=== PATIENT | female | born 1975 | race Hispanic/Latino ===

== ENCOUNTER 2021-03-27 08:37 | Emergency (ER) | payer OTHER ==
[~2021-03-27] VITALS: Ht 154.9 cm; Wt 93.7 kg
[2021-03-27] MEDS ORDERED: ONDANSETRON HCL INJ 2MG/ML 2ML 2 MG/ML VIAL IV STA (09:18)
[2021-03-27] MEDS ORDERED: KETOROLAC TROMETHAMINE 30 MG/ML VIAL IV STA (09:18)
[2021-03-27] MEDS ORDERED: SODIUM CHLORIDE 0.9% 1000ML 1,000 ML IV STA ×2 (09:18→09:20)
[2021-03-27] MEDS ORDERED: SODIUM CHLORIDE 0.9% 1000ML 1,000 ML ONE (09:20)
[2021-03-27] MEDS ORDERED: KETOROLAC TROMETHAMINE 30 MG/ML VIAL ONE (09:20)
[2021-03-27] MEDS ORDERED: ONDANSETRON HCL INJ 2MG/ML 2ML 2 MG/ML VIAL ONE (09:20)
[2021-03-27] MEDS ORDERED: KETOROLAC TROMETHAMINE 30 MG/ML VIAL IV ONE (09:30)
[2021-03-27] MEDS ORDERED: PROMETHAZINE 12.5MG/ NACL 0.9% 12.5 MG/50 ML BAG IV ONE (09:30)
[2021-03-27] MEDS ORDERED: HYDROCODONE/APAP 5MG-325MG TAB ONE (09:51)
[2021-03-27] MEDS ORDERED: HYDROCODONE/APAP 5MG-325MG TAB PO PRN (10:00)
[2021-03-27] MEDS ORDERED: CEFDINIR300 MG PO (11:03)
[2021-03-27] MEDS ORDERED: ONDANSETRON ODT4 MG PO (11:03)
[2021-03-27] MEDS ORDERED: HYDROCODON-ACE1 EA12 PO (11:03)
[2021-03-27 11:28] VITALS: BP 151/77
== END 2021-03-27 11:26 | disposition home or self-care (01) ==
LOC: FSED 09:22
DX: R10.31 Right lower quadrant pain (principal); R11.2 Nausea with vomiting, unspecified; N13.2 Hydronephrosis with renal and ureteral calculous obstruction; M54.5 Low back pain
CPT/HCPCS: 74176; 80048; 80076; 81003; 85025; 96374; 96375; 99284; J1885; J2405; J2550; J7030

== ENCOUNTER 2021-04-01 03:45 | Inpatient (IN) | payer SELFPAY ==
[~2021-04-01] VITALS: Ht 154.9 cm; Wt 92.1 kg
[~2021-04-01 03:45] MED LIST: CEFDINIR300 MG PO; HYDROCODON-ACE1 EA12 PO; ONDANSETRON ODT4 MG PO
[2021-04-01 04:24] LABS: BASOPHILS # (AUTO) 0.1 (0.0-0.1); BASOPHILS % 0.9 % (0.0-1.0); EOSINOPHILS # (AUTO) 0.1 (0.0-0.4); EOSINOPHILS % 0.7 % (0.0-6.0); HEMATOCRIT 36.8 % (34.2-44.1); LYMPHOCYTES # (AUTO) 1.4 (1.0-3.2); LYMPHOCYTES % 20.5 % (18.0-39.1); MEAN CORPUSCULAR HEMOGLOBIN 28.2 pg (28-32); MEAN CORPUSCULAR HGB CONC 32.6 g/dL (31-35); MEAN CORPUSCULAR VOLUME 86.4 fL (81-99); MONOCYTES # (AUTO) 0.6 (0.2-0.8); MONOCYTES % 9.6 % (4.4-11.3); NEUTROPHILS # (AUTO) 4.5 (2.1-6.9); NEUTROPHILS % 68.2 % (38.7-80.0); PLATELET COUNT 288 x10e3/uL (140-360); RED BLOOD COUNT 4.26 x10e6/uL (3.6-5.1); RED CELL DISTRIBUTION WIDTH 12.9 % (11.7-14.4)
[2021-04-01 04:44] LABS: ALANINE AMINOTRANSFERASE 25 IU/L (0-55); ALBUMIN 3.2 g/dL (3.5-5.0); ALBUMIN/GLOBULIN RATIO 0.7 (0.8-2.0); ALKALINE PHOSPHATASE 104 IU/L (40-150); ANION GAP 17.2 mmol/L (8-16); BLOOD UREA NITROGEN 12 mg/dL (7-26); BUN/CREATININE RATIO 13 (6-25); CARBON DIOXIDE 26 mmol/L (22-29); CHLORIDE 101 mmol/L (98-107); EST GLOMERULAR FILTRATION RATE > 60 ML/MIN (60-); GLUCOSE 140 mg/dL (74-118); POTASSIUM 4.2 mmol/L (3.5-5.1); SODIUM 140 mmol/L (136-145)
[2021-04-01] MEDS ORDERED: KETOROLAC TROMETHAMINE 30 MG/ML VIAL IV STA (05:43)
[2021-04-01] MEDS ORDERED: SODIUM CHLORIDE 0.9% 1000ML 1,000 ML IV SCH ×2 (05:45→09:30)
[2021-04-01] MEDS ORDERED: CEFTRIAXONE SOD 1 GM/50 ML BAG IV ONE (06:00)
[2021-04-01] MEDS ORDERED: CEFTRIAXONE SOD 1 GM in SODIUM CHLORIDE 0.9% 50ML 50 ML IV ONE (06:15)
[2021-04-01] MEDS ORDERED: MORPHINE SULFATE INJ 4 MG/ML INJ 1ML IV PRN (06:15)
[2021-04-01] MEDS ORDERED: ONDANSETRON HCL INJ 2MG/ML 2ML 2 MG/ML VIAL IV PRN (06:15)
[2021-04-01 06:38] LABS: CLARITY,URINE CLEAR (CLEAR); COLOR,URINE YELLOW (YELLOW); LEUKOCYTE ESTERASE ,URINE SMALL (NEGATIVE); NITRITE,URINE NEGATIVE (NEGATIVE); PROTEIN,URINE DIPSTICK NEGATIVE (NEGATIVE)
[2021-04-01 06:39] LABS: KETONES,URINE 1+ (NEGATIVE); URINE UROBILINOGEN 0.2 mg/dL (0.2 - 1)
[2021-04-01 06:46] LABS: BACTERIA,URINE FEW /HPF; EPITHELIAL CELLS,URINE MODERATE /LPF; RBC,URINE 21-50 /HPF (0-5); WBC,URINE (MAN) 21-50 /HPF (0-5)
[2021-04-01] MEDS ORDERED: BENZONATATE 100 MG CAP PO PRN (08:45)
[2021-04-01] MEDS ORDERED: DOCUSATE SODIUM 100 MG CAP PO PRN (08:45)
[2021-04-01] MEDS ORDERED: LIDOCAINE 4% PATCH TP PRN (08:45)
[2021-04-01] MEDS ORDERED: SIMETHICONE 80 MG CHEW PO PRN (08:45)
[2021-04-01] MEDS ORDERED: HYDRALAZINE HCL 20 MG/ML VIAL IV PRN (08:45)
[2021-04-01] MEDS ORDERED: DEXTROSE 50% SYRINGE 50 ML IV PRN (08:45)
[2021-04-01] MEDS ORDERED: POLYETHYLENE GLYCOL 3350 17 GM PACK PO PRN (08:45)
[2021-04-01] MEDS ORDERED: POTASSIUM CHLORIDE 20 MEQ TAB CR PO PRN (08:45)
[2021-04-01] MEDS ORDERED: DIPHENHYDRAMINE HCL 25 MG CAP PO PRN (08:45)
[2021-04-01] MEDS ORDERED: MELATONIN 5 MG TABLET PO PRN (08:45)
[2021-04-01] MEDS: KETOROLAC TROMETHAMINE 30 MG/ML VIAL IV SCH ×2 (09:55→17:49)
[2021-04-01] MEDS: ONDANSETRON HCL INJ 2MG/ML 2ML 2 MG/ML VIAL IV PRN (09:55)
[2021-04-01] MEDS: MORPHINE SULFATE INJ 2 MG/ML SYR IV PRN (09:55)
[2021-04-01] MEDS: SODIUM CHLORIDE 0.9% 1000ML 1,000 ML IV SCH ×2 (14:08→17:48)
[2021-04-01 15:29] VITALS: BP 143/68
[2021-04-01 17:00] VITALS: BP 143/68
[2021-04-01] MEDS: ACETAMINOPHEN 325 MG TAB PO PRN ×2 (17:41→23:41)
[2021-04-01 20:00] VITALS: BP 115/98
[2021-04-01 21:00] VITALS: BP 115/98
[2021-04-02] VITALS (9 sets, daily range): BP systolic 103–130; BP diastolic 56–75
[2021-04-02] MEDS: SODIUM CHLORIDE 0.9% 1000ML 1,000 ML IV SCH ×4 (02:08→22:15)
[2021-04-02] MEDS ORDERED: ACETAMINOPHEN 325 MG TAB PO ONE (04:15)
[2021-04-02] MEDS ORDERED: IBUPROFEN 600 MG TAB PO PRN (04:15)
[2021-04-02] MEDS ORDERED: SODIUM CHLORIDE 0.9% 50ML 50 ML ONE (05:46)
[2021-04-02] MEDS ORDERED: PIPER-TAZ 3.375 GM / NS 50ML IV SCH (06:00)
[2021-04-02] MEDS ORDERED: PIPERACILLIN/TAZOBAC 3.375 GM in SODIUM CHLORIDE 0.9% 50ML 50 ML IV SCH (06:00)
[2021-04-02 06:03] LABS: BASOPHILS % 0.4 % (0.0-1.0); HEMATOCRIT 32.8 % (34.2-44.1); HEMOGLOBIN 10.9 g/dL (12.0-16.0); LYMPHOCYTES # (AUTO) 0.2 (1.0-3.2); LYMPHOCYTES % 2.6 % (18.0-39.1); MEAN CORPUSCULAR HEMOGLOBIN 28.5 pg (28-32); MEAN CORPUSCULAR HGB CONC 33.2 g/dL (31-35); MEAN CORPUSCULAR VOLUME 85.6 fL (81-99); MONOCYTES # (AUTO) 0.3 (0.2-0.8); MONOCYTES % 3.4 % (4.4-11.3); NEUTROPHILS # (AUTO) 7.4 (2.1-6.9); NEUTROPHILS % 93.2 % (38.7-80.0); PLATELET COUNT 205 x10e3/uL (140-360); RED BLOOD COUNT 3.83 x10e6/uL (3.6-5.1); RED CELL DISTRIBUTION WIDTH 13.1 % (11.7-14.4)
[2021-04-02] MEDS: KETOROLAC TROMETHAMINE 30 MG/ML VIAL IV SCH ×4 (06:08→18:04)
[2021-04-02 06:24] LABS: ALBUMIN 2.6 g/dL (3.5-5.0); ALBUMIN/GLOBULIN RATIO 0.7 (0.8-2.0); ANION GAP 14.2 mmol/L (8-16); CALCIUM 7.7 mg/dL (8.4-10.2); CREATININE, SERUM 1.19 mg/dL (0.57-1.11); MAGNESIUM 1.6 MG/DL (1.3-2.1); POTASSIUM 4.2 mmol/L (3.5-5.1)
[2021-04-02] MEDS ORDERED: CEFTRIAXONE SOD 1 GM in SODIUM CHLORIDE 0.9% 50ML 50 ML IV SCH (06:30)
[2021-04-02] MEDS ORDERED: MEROPENEM 500MG 500 MG in SODIUM CHLORIDE 0.9% 50ML 50 ML IV SCH (06:45)
[2021-04-02] MEDS ORDERED: CEFTRIAXONE SOD 1 GM/50 ML BAG IV SCH (07:00)
[2021-04-02 08:00] LABS: BAND NEUTROPHILS % (MANUAL) 2 %; LYMPHOCYTES % (MANUAL) 12 % (19-48); METAMYELOCYTES % (MANUAL) 2 % (0-0); MONOCYTES % (MANUAL) 6 % (3.4-9.0); NEUTROPHILS % (MANUAL) 75 % (40-74); PLATELET ESTIMATE ADEQUATE; PLATELET MORPHOLOGY COMMENT NORMAL
[2021-04-02 08:47] LABS: INR 1.05; PROTHROMBIN TIME 14.3 seconds (11.9-14.5)
[2021-04-02 08:48] LABS: PARTIAL THROMBOPLASTIN TIME 33.7 seconds (23.8-35.5)
[2021-04-02] MEDS: ACETAMINOPHEN 325 MG TAB PO PRN ×2 (08:54→16:34)
[2021-04-02] MEDS: PANTOPRAZOLE SOD 40 MG TABEC PO SCH (08:59)
[2021-04-02] MEDS: ONDANSETRON HCL INJ 2MG/ML 2ML 2 MG/ML VIAL IV PRN (09:04)
[2021-04-02] MEDS ORDERED: IOPAMIDOL 300MG/ML 100 ML INFUS..BTL IV ONE (09:26)
[2021-04-02] MEDS ORDERED: LIDOCAINE HCL 1% LOCAL INJ 20 ML VIAL ONE (09:26)
[2021-04-02] MEDS ORDERED: SODIUM CHLORIDE 0.9% 250ML 0 ML ONE (09:27)
[2021-04-02] MEDS: MORPHINE SULFATE INJ 2 MG/ML SYR IV PRN (13:11)
[2021-04-02] MEDS: MEROPENEM 500MG/ NS 50ML 50 ML IV SCH ×2 (14:04→20:15)
[2021-04-02] MEDS ORDERED: FENTANYL CITRATE/PF 100MCG/2 ML INJ ONE (14:46)
[2021-04-02] MEDS ORDERED: MIDAZOLAM HCL 2 MG/2 ML VIAL ONE (14:46)
[2021-04-02] MEDS ORDERED: FLUMAZENIL 0.5MG/ 5ML VIAL ONE (15:01)
[2021-04-02] MEDS ORDERED: NALOXONE HCL 2MG/2 ML SYRINGE ONE (15:02)
[2021-04-02] MEDS ORDERED: SODIUM CHLORIDE 0.9% 500ML 500 ML ONE (15:02)
[2021-04-02] MEDS ORDERED: SODIUM CHLORIDE 0.9% 250ML 250 ML ONE (15:04)
[2021-04-02] MEDS ORDERED: MEROPENEM 500MG/ NS 50ML 50 ML IV SCH (18:00)
[2021-04-03] VITALS (7 sets, daily range): BP systolic 102–138; BP diastolic 60–72
[2021-04-03] MEDS: ACETAMINOPHEN 325 MG TAB PO PRN ×2 (00:47→17:10)
[2021-04-03] MEDS: MEROPENEM 500MG/ NS 50ML 50 ML IV SCH ×4 (02:07→20:21)
[2021-04-03 05:01] LABS: BASOPHILS % 0.7 % (0.0-1.0); HEMATOCRIT 33.6 % (34.2-44.1); HEMOGLOBIN 10.7 g/dL (12.0-16.0); LYMPHOCYTES # (AUTO) 0.5 (1.0-3.2); LYMPHOCYTES % 9.2 % (18.0-39.1); MEAN CORPUSCULAR HEMOGLOBIN 27.8 pg (28-32); MEAN CORPUSCULAR HGB CONC 31.8 g/dL (31-35); MEAN CORPUSCULAR VOLUME 87.3 fL (81-99); MONOCYTES # (AUTO) 0.2 (0.2-0.8); MONOCYTES % 3.9 % (4.4-11.3); NEUTROPHILS # (AUTO) 4.6 (2.1-6.9); NEUTROPHILS % 85.5 % (38.7-80.0); PLATELET COUNT 193 x10e3/uL (140-360); RED BLOOD COUNT 3.85 x10e6/uL (3.6-5.1)
[2021-04-03] MEDS: SODIUM CHLORIDE 0.9% 1000ML 1,000 ML IV SCH ×3 (05:07→18:07)
[2021-04-03 05:24] LABS: ANION GAP 14.8 mmol/L (8-16); BLOOD UREA NITROGEN 7 mg/dL (7-26); BUN/CREATININE RATIO 9 (6-25); CALCIUM 7.4 mg/dL (8.4-10.2); CARBON DIOXIDE 18 mmol/L (22-29); CHLORIDE 107 mmol/L (98-107); CREATININE, SERUM 0.76 mg/dL (0.57-1.11); EST GLOMERULAR FILTRATION RATE > 60 ML/MIN (60-); GLUCOSE 84 mg/dL (74-118); POTASSIUM 3.8 mmol/L (3.5-5.1); SODIUM 136 mmol/L (136-145)
[2021-04-03] MEDS: PANTOPRAZOLE SOD 40 MG TABEC PO SCH (09:21)
[2021-04-03] MEDS: MICAFUNGIN SODIUM 100 MG in MICAFUNGIN SODIUM 100 ML IV SCH (12:43)
[2021-04-04] VITALS (9 sets, daily range): BP systolic 129–156; BP diastolic 66–75
[2021-04-04] MEDS: MORPHINE SULFATE INJ 2 MG/ML SYR IV PRN (01:25)
[2021-04-04] MEDS: MEROPENEM 500MG/ NS 50ML 50 ML IV SCH ×4 (02:07→20:50)
[2021-04-04] MEDS: ONDANSETRON HCL INJ 2MG/ML 2ML 2 MG/ML VIAL IV PRN (04:52)
[2021-04-04] MEDS: SODIUM CHLORIDE 0.9% 1000ML 1,000 ML IV SCH ×2 (04:52)
[2021-04-04 05:21] LABS: BASOPHILS # (AUTO) 0.1 (0.0-0.1); BASOPHILS % 0.7 % (0.0-1.0); EOSINOPHILS % 0.5 % (0.0-6.0); HEMATOCRIT 38.2 % (34.2-44.1); HEMOGLOBIN 12.2 g/dL (12.0-16.0); LYMPHOCYTES % 13.1 % (18.0-39.1); MEAN CORPUSCULAR HEMOGLOBIN 27.9 pg (28-32); MEAN CORPUSCULAR HGB CONC 31.9 g/dL (31-35); MEAN CORPUSCULAR VOLUME 87.4 fL (81-99); MONOCYTES # (AUTO) 0.5 (0.2-0.8); MONOCYTES % 6.3 % (4.4-11.3); NEUTROPHILS % 78.7 % (38.7-80.0); PLATELET COUNT 165 x10e3/uL (140-360); RED BLOOD COUNT 4.37 x10e6/uL (3.6-5.1)
[2021-04-04 05:34] LABS: ANION GAP 17.7 mmol/L (8-16); BLOOD UREA NITROGEN 6 mg/dL (7-26); BUN/CREATININE RATIO 9 (6-25); CARBON DIOXIDE 23 mmol/L (22-29); CHLORIDE 101 mmol/L (98-107); CREATININE, SERUM 0.69 mg/dL (0.57-1.11); EST GLOMERULAR FILTRATION RATE > 60 ML/MIN (60-); GLUCOSE 124 mg/dL (74-118); POTASSIUM 3.7 mmol/L (3.5-5.1); SODIUM 138 mmol/L (136-145)
[2021-04-04] MEDS: PANTOPRAZOLE SOD 40 MG TABEC PO SCH (09:58)
[2021-04-04] MEDS: MICAFUNGIN SODIUM 100 MG in MICAFUNGIN SODIUM 100 ML IV SCH (13:43)
[2021-04-04] MEDS ORDERED: LOPERAMIDE HCL 2 MG CAP PO ONE (22:45)
[2021-04-05] VITALS (7 sets, daily range): BP systolic 123–151; BP diastolic 63–85
[2021-04-05] MEDS: MEROPENEM 500MG/ NS 50ML 50 ML IV SCH ×4 (02:17→20:15)
[2021-04-05] MEDS: PANTOPRAZOLE SOD 40 MG TABEC PO SCH (08:53)
[2021-04-05] MEDS: MICAFUNGIN SODIUM 100 MG in MICAFUNGIN SODIUM 100 ML IV SCH (12:00)
[2021-04-05] MEDS: ACETAMINOPHEN 325 MG TAB PO PRN (19:23)
[2021-04-06] VITALS (8 sets, daily range): BP systolic 109–150; BP diastolic 69–84
[2021-04-06] MEDS: MEROPENEM 500MG/ NS 50ML 50 ML IV SCH ×2 (02:25→08:59)
[2021-04-06 05:19] LABS: ANION GAP 15.4 mmol/L (8-16); BLOOD UREA NITROGEN 10 mg/dL (7-26); BUN/CREATININE RATIO 16 (6-25); CALCIUM 8.5 mg/dL (8.4-10.2); CARBON DIOXIDE 25 mmol/L (22-29); CHLORIDE 104 mmol/L (98-107); CREATININE, SERUM 0.64 mg/dL (0.57-1.11); EST GLOMERULAR FILTRATION RATE > 60 ML/MIN (60-); GLUCOSE 119 mg/dL (74-118); POTASSIUM 3.4 mmol/L (3.5-5.1); SODIUM 141 mmol/L (136-145)
[2021-04-06] MEDS: PANTOPRAZOLE SOD 40 MG TABEC PO SCH (08:58)
[2021-04-06] MEDS: MICAFUNGIN SODIUM 100 MG in MICAFUNGIN SODIUM 100 ML IV SCH (12:09)
[2021-04-07 05:36] VITALS: BP 108/66
[2021-04-07] MEDS: PANTOPRAZOLE SOD 40 MG TABEC PO SCH (08:22)
[2021-04-07 08:41] VITALS: BP 116/80
[2021-04-07 08:55] VITALS: BP 116/80
[2021-04-07] MEDS: MORPHINE SULFATE INJ 2 MG/ML SYR IV PRN (10:02)
[2021-04-07 11:46] VITALS: BP 136/78
[2021-04-07] MEDS ORDERED: MICAFUNGIN SODIUM 100 ML IV SCH (12:00)
[2021-04-07] MEDS ORDERED: DIFLUCAN200 MG PO (15:07)
[2021-04-07] MEDS ORDERED: ENOXAPARIN SOD INJ 40 MG/0.4 ML SYR SC SCH (17:00)
== END 2021-04-07 16:18 | disposition home or self-care (01) | DRG 690 ==
LOC: ER 05:09 → ERHOLD 06:04 → MED/SURG2 14:47
PROVIDERS: ADMIT Internal Medicine; ATTEND Internal Medicine
PROC: 0T9030Z Drainage of Right Kidney with Drainage Device, Percutaneous Approach (ICD-10-PCS; principal; 2021-04-02)
DX: N13.6 Pyonephrosis (principal); B37.49 Other urogenital candidiasis; Z87.442 Personal history of urinary calculi; Z20.822 Contact with and (suspected) exposure to COVID-19; E66.9 Obesity, unspecified; Z68.38 Body mass index [BMI] 38.0-38.9, adult; K29.70 Gastritis, unspecified, without bleeding; I10 Essential (primary) hypertension; E87.8 Other disorders of electrolyte and fluid balance, not elsewhere classified; N17.9 Acute kidney failure, unspecified
CPT/HCPCS: 36415; 50430; 74176; 74470; 76942; 80048; 80053; 81001; 82948; 83605; 83690; 83735; 84702; 85025; 85610; 85730; 87040; 87071; 87075; 87086; 87205; 87493; 99284; C1769; J0696; J1885; J2001; J2185; J2248; J2250; J2270; J2310; J2405; J2543; J3010; J7030; J7040; J7050; Q9967; U0002

== ENCOUNTER 2021-04-15 12:45 | Inpatient (IN) | payer SELFPAY ==
[~2021-04-15] VITALS: Ht 154.9 cm; Wt 92.1 kg
[~2021-04-15 12:45] MED LIST changes: +DIFLUCAN200 MG PO
[2021-04-15] MEDS ORDERED: PIPERACILLIN/TAZOBAC 3.375 GM in SODIUM CHLORIDE 0.9% 50ML 50 ML IV STA (13:28)
[2021-04-15] MEDS ORDERED: SODIUM CHLORIDE 0.9% 1000ML 1,000 ML IV SCH (13:30)
[2021-04-15] MEDS ORDERED: ASPIRIN 81 MG CHEW TAB PO ONE (13:30)
[2021-04-15] MEDS ORDERED: ACETAMINOPHEN 325 MG TAB ONE (13:30)
[2021-04-15 13:38] LABS: BASOPHILS # (AUTO) 0.1 (0.0-0.1); BASOPHILS % 0.7 % (0.0-1.0); EOSINOPHILS % 0.1 % (0.0-6.0); HEMATOCRIT 39.9 % (34.2-44.1); HEMOGLOBIN 13.1 g/dL (12.0-16.0); LYMPHOCYTES # (AUTO) 1.3 (1.0-3.2); LYMPHOCYTES % 12.4 % (18.0-39.1); MEAN CORPUSCULAR HEMOGLOBIN 28.1 pg (28-32); MEAN CORPUSCULAR HGB CONC 32.8 g/dL (31-35); MEAN CORPUSCULAR VOLUME 85.6 fL (81-99); MONOCYTES # (AUTO) 0.7 (0.2-0.8); MONOCYTES % 6.3 % (4.4-11.3); NEUTROPHILS # (AUTO) 8.5 (2.1-6.9); NEUTROPHILS % 80.1 % (38.7-80.0); PLATELET COUNT 345 x10e3/uL (140-360); RED BLOOD COUNT 4.66 x10e6/uL (3.6-5.1); RED CELL DISTRIBUTION WIDTH 13.7 % (11.7-14.4)
[2021-04-15] MEDS ORDERED: SODIUM CHLORIDE 0.9% 1000ML 1,000 ML IV STA (13:56)
[2021-04-15] MEDS ORDERED: ONDANSETRON HCL INJ 2MG/ML 2ML 2 MG/ML VIAL IV PRN (14:00)
[2021-04-15] MEDS ORDERED: MORPHINE SULFATE INJ 2 MG/ML SYR IV PRN (14:00)
[2021-04-15 14:03] LABS: ALANINE AMINOTRANSFERASE 41 IU/L (0-55); ALBUMIN 3.7 g/dL (3.5-5.0); ALBUMIN/GLOBULIN RATIO 0.8 (0.8-2.0); ALKALINE PHOSPHATASE 107 IU/L (40-150); ANION GAP 18.4 mmol/L (8-16); BLOOD UREA NITROGEN 8 mg/dL (7-26); BUN/CREATININE RATIO 11 (6-25); CALCIUM 9.4 mg/dL (8.4-10.2); CARBON DIOXIDE 24 mmol/L (22-29); CHLORIDE 98 mmol/L (98-107); CREATINE KINASE 27 IU/L (29-168); CREATININE, SERUM 0.75 mg/dL (0.57-1.11); EST GLOMERULAR FILTRATION RATE > 60 ML/MIN (60-); GLUCOSE 135 mg/dL (74-118); POTASSIUM 4.4 mmol/L (3.5-5.1); SODIUM 136 mmol/L (136-145)
[2021-04-15] MEDS ORDERED: MORPHINE SULFATE INJ 4 MG/ML INJ 1ML IV PRN (14:15)
[2021-04-15] MEDS ORDERED: ACETAMINOPHEN 325 MG TAB PO ONE (14:45)
[2021-04-15] MEDS: SODIUM CHLORIDE 0.9% 1000ML 1,000 ML IV SCH ×2 (15:10→20:09)
[2021-04-15] MEDS ORDERED: HYDROCODONE/APAP 7.5MG-325MG 1 EA TAB PO PRN (15:15)
[2021-04-15 15:22] LABS: CLARITY,URINE CLOUDY (CLEAR); COLOR,URINE YELLOW (YELLOW); LEUKOCYTE ESTERASE ,URINE 2+ (NEGATIVE); NITRITE,URINE NEGATIVE (NEGATIVE)
[2021-04-15 15:23] LABS: KETONES,URINE NEGATIVE (NEGATIVE); PROTEIN,URINE DIPSTICK 1+ (NEGATIVE); URINE UROBILINOGEN 0.2 mg/dL (0.2 - 1)
[2021-04-15 15:34] LABS: BACTERIA,URINE MANY /HPF; EPITHELIAL CELLS,URINE MODERATE /LPF; RBC,URINE 21-50 /HPF (0-5); RENAL EPITHELIAL CELLS,URINE FEW; WBC,URINE (MAN) >50 /HPF (0-5)
[2021-04-15 16:06] VITALS: BP 117/72
[2021-04-15 17:05] VITALS: BP 117/72
[2021-04-15] MEDS: PIPERACILLIN/TAZOBAC 3.375 GM in SODIUM CHLORIDE 0.9% 50ML 50 ML IV SCH (19:57)
[2021-04-15 20:25] VITALS: BP 133/70
[2021-04-15 21:00] VITALS: BP 133/70
[2021-04-16] VITALS (7 sets, daily range): BP systolic 100–148; BP diastolic 58–88
[2021-04-16] MEDS: PIPERACILLIN/TAZOBAC 3.375 GM in SODIUM CHLORIDE 0.9% 50ML 50 ML IV SCH ×4 (02:39→20:35)
[2021-04-16] MEDS ORDERED: ACETAMINOPHEN 325 MG TAB PO PRN (02:45)
[2021-04-16] MEDS: SODIUM CHLORIDE 0.9% 1000ML 1,000 ML IV SCH ×2 (06:00→14:20)
[2021-04-16 08:50] LABS: BASOPHILS # (AUTO) 0.1 (0.0-0.1); BASOPHILS % 0.8 % (0.0-1.0); EOSINOPHILS % 0.5 % (0.0-6.0); HEMATOCRIT 34.6 % (34.2-44.1); LYMPHOCYTES # (AUTO) 1.3 (1.0-3.2); LYMPHOCYTES % 21.3 % (18.0-39.1); MEAN CORPUSCULAR HEMOGLOBIN 27.9 pg (28-32); MEAN CORPUSCULAR HGB CONC 31.8 g/dL (31-35); MEAN CORPUSCULAR VOLUME 87.8 fL (81-99); MONOCYTES # (AUTO) 0.6 (0.2-0.8); MONOCYTES % 9.8 % (4.4-11.3); NEUTROPHILS # (AUTO) 4.1 (2.1-6.9); NEUTROPHILS % 67.1 % (38.7-80.0); PLATELET COUNT 293 x10e3/uL (140-360); RED BLOOD COUNT 3.94 x10e6/uL (3.6-5.1); RED CELL DISTRIBUTION WIDTH 13.7 % (11.7-14.4)
[2021-04-16 09:11] LABS: ALANINE AMINOTRANSFERASE 34 IU/L (0-55); ALBUMIN/GLOBULIN RATIO 0.7 (0.8-2.0); ALKALINE PHOSPHATASE 87 IU/L (40-150); ANION GAP 13.4 mmol/L (8-16); BLOOD UREA NITROGEN 7 mg/dL (7-26); BUN/CREATININE RATIO 10 (6-25); CALCIUM 8.7 mg/dL (8.4-10.2); CARBON DIOXIDE 22 mmol/L (22-29); CHLORIDE 106 mmol/L (98-107); CREATININE, SERUM 0.71 mg/dL (0.57-1.11); EST GLOMERULAR FILTRATION RATE > 60 ML/MIN (60-); GLUCOSE 182 mg/dL (74-118); POTASSIUM 3.4 mmol/L (3.5-5.1); SODIUM 138 mmol/L (136-145)
[2021-04-16] MEDS: POLYETHYLENE GLYCOL 3350 17 GM PACK PO SCH ×2 (14:20→17:21)
[2021-04-16] MEDS ORDERED: POTASSIUM CHLORIDE 10MEQ EA PO ONE (14:30)
[2021-04-16] MEDS: SENNA-S TABLET PO SCH (17:21)
[2021-04-16] MEDS ORDERED: IOPAMIDOL 370 MG/ML 200 ML INFUS..BTL INJ ONE (18:16)
[2021-04-16] MEDS ORDERED: SODIUM CHLORIDE 0.9% 50ML 50 ML ONE (18:16)
[2021-04-17] VITALS (10 sets, daily range): BP systolic 108–130; BP diastolic 59–83
[2021-04-17] MEDS: PIPERACILLIN/TAZOBAC 3.375 GM in SODIUM CHLORIDE 0.9% 50ML 50 ML IV SCH ×3 (02:00→14:00)
[2021-04-17] MEDS: SODIUM CHLORIDE 0.9% 1000ML 1,000 ML IV SCH ×2 (03:20→21:16)
[2021-04-17] MEDS: POLYETHYLENE GLYCOL 3350 17 GM PACK PO SCH ×2 (08:31→16:00)
[2021-04-17] MEDS: SENNA-S TABLET PO SCH ×2 (08:32→16:00)
[2021-04-17] MEDS ORDERED: CHOLESTYRAMINE 4 GM PACKET PO PRN (16:00)
[2021-04-18 04:00] VITALS: BP 124/66
[2021-04-18] MEDS: SODIUM CHLORIDE 0.9% 1000ML 1,000 ML IV SCH (05:20)
[2021-04-18 08:35] VITALS: BP 124/66
[2021-04-18 08:43] VITALS: BP 135/69
[2021-04-18 08:51] VITALS: BP 135/69
[2021-04-18] MEDS: SENNA-S TABLET PO SCH (09:00)
[2021-04-18] MEDS: POLYETHYLENE GLYCOL 3350 17 GM PACK PO SCH (09:00)
[2021-04-18] MEDS ORDERED: POTASSIUM CHLORIDE 10MEQ EA PO ONE ×2 (10:40→11:30)
[2021-04-18] MEDS: VANCOMYCIN HCL 125 MG CAPSULE PO SCH ×2 (10:52→14:00)
[2021-04-18] MEDS ORDERED: ONDANSETRON HCL 4 MG ORAL DISINTEGRATING TAB PO PRN (11:15)
[2021-04-18 12:13] VITALS: BP 128/80
[2021-04-18] MEDS ORDERED: CIPRO500 MG PO (13:28)
[2021-04-18] MEDS ORDERED: VANCOCIN HCL250 MG PO (13:29)
[2021-04-18] MEDS ORDERED: QUESTRAN PACKET4 GM PO (13:29)
[2021-04-18] MEDS ORDERED: BACTRIM DS TAB1 EACH PO (16:28)
== END 2021-04-18 15:43 | disposition home or self-care (01) | DRG 699 ==
LOC: ER 13:26 → ERHOLD 15:12 → MED/SURG2 15:34
PROVIDERS: ADMIT Internal Medicine; ATTEND Internal Medicine
DX: T83.512A Infection and inflammatory reaction due to nephrostomy catheter, initial encounter (principal); N13.6 Pyonephrosis; Z87.442 Personal history of urinary calculi; Z88.1 Allergy status to other antibiotic agents; E66.9 Obesity, unspecified; Z68.38 Body mass index [BMI] 38.0-38.9, adult; D64.9 Anemia, unspecified; B96.89 Other specified bacterial agents as the cause of diseases classified elsewhere; Z20.822 Contact with and (suspected) exposure to COVID-19
CPT/HCPCS: 36415; 71046; 71260; 74176; 80053; 81001; 82550; 82553; 84484; 85025; 87040; 87086; 87186; 99284; J2405; J2543; J7030; Q9967; U0002

== ENCOUNTER 2021-05-01 23:29 | Inpatient (IN) | payer OTHER ==
[~2021-05-01] VITALS: Ht 154.9 cm; Wt 88.9 kg
[~2021-05-01 23:29] MED LIST changes: +BACTRIM DS TAB1 EACH PO; +CIPRO500 MG PO; +QUESTRAN PACKET4 GM PO; +VANCOCIN HCL250 MG PO
[2021-05-02] VITALS (7 sets, daily range): BP systolic 109–145; BP diastolic 62–81
[2021-05-02 00:37] LABS: BASOPHILS # (AUTO) 0.1 (0.0-0.1); BASOPHILS % 0.8 % (0.0-1.0); EOSINOPHILS # (AUTO) 0.1 (0.0-0.4); EOSINOPHILS % 1.1 % (0.0-6.0); HEMATOCRIT 35.7 % (34.2-44.1); HEMOGLOBIN 11.5 g/dL (12.0-16.0); LYMPHOCYTES # (AUTO) 2.1 (1.0-3.2); LYMPHOCYTES % 21.9 % (18.0-39.1); MEAN CORPUSCULAR HEMOGLOBIN 28.3 pg (28-32); MEAN CORPUSCULAR HGB CONC 32.2 g/dL (31-35); MEAN CORPUSCULAR VOLUME 87.7 fL (81-99); MONOCYTES # (AUTO) 0.4 (0.2-0.8); MONOCYTES % 4.2 % (4.4-11.3); NEUTROPHILS # (AUTO) 6.8 (2.1-6.9); NEUTROPHILS % 71.8 % (38.7-80.0); PLATELET COUNT 276 x10e3/uL (140-360); RED BLOOD COUNT 4.07 x10e6/uL (3.6-5.1); RED CELL DISTRIBUTION WIDTH 14.2 % (11.7-14.4)
[2021-05-02 00:57] LABS: ALANINE AMINOTRANSFERASE 34 IU/L (0-55); ALBUMIN 3.7 g/dL (3.5-5.0); ALKALINE PHOSPHATASE 81 IU/L (40-150); ANION GAP 15.8 mmol/L (8-16); CARBON DIOXIDE 23 mmol/L (22-29); CHLORIDE 105 mmol/L (98-107); CREATININE, SERUM 0.74 mg/dL (0.57-1.11); EST GLOMERULAR FILTRATION RATE > 60 ML/MIN (60-); GLUCOSE 142 mg/dL (74-118); POTASSIUM 3.8 mmol/L (3.5-5.1); SODIUM 140 mmol/L (136-145)
[2021-05-02] MEDS ORDERED: MORPHINE SULFATE INJ 4 MG/ML INJ 1ML IV STA (01:04)
[2021-05-02 01:08] LABS: BLOOD UREA NITROGEN 17 mg/dL (7-26); BUN/CREATININE RATIO 23 (6-25)
[2021-05-02] MEDS ORDERED: IBUPROFEN 600 MG TAB PO STA (01:27)
[2021-05-02] MEDS: PIPERACILLIN/TAZOBACTAM 3.375 GM in SODIUM CHLORIDE 0.9% 50ML 50 ML IV SCH ×4 (02:14→23:44)
[2021-05-02] MEDS: ONDANSETRON HCL INJ 2MG/ML 2ML 2 MG/ML VIAL IV PRN ×2 (02:14→07:58)
[2021-05-02 02:49] LABS: CLARITY,URINE CLOUDY (CLEAR); COLOR,URINE YELLOW (YELLOW); KETONES,URINE NEGATIVE (NEGATIVE); LEUKOCYTE ESTERASE ,URINE 1+ (NEGATIVE); NITRITE,URINE POSITIVE (NEGATIVE); PROTEIN,URINE DIPSTICK TRACE (NEGATIVE); URINE UROBILINOGEN 0.2 mg/dL (0.2 - 1)
[2021-05-02 02:56] LABS: BACTERIA,URINE MANY /HPF; EPITHELIAL CELLS,URINE FEW /LPF; MUCUS,URINE FEW (RARE); TRANSITIONAL EPI CELLS,URINE FEW; WBC,URINE (MAN) >50 /HPF (0-5)
[2021-05-02] MEDS ORDERED: IOPAMIDOL 300MG/ML 100 ML INFUS..BTL IV ONE (03:09)
[2021-05-02] MEDS ORDERED: ACETAMINOPHEN 325 MG TAB PO PRN (03:30)
[2021-05-02] MEDS ORDERED: SODIUM CHLORIDE 0.9% 1000ML 1,000 ML IV STA (03:30)
[2021-05-02 03:38] LABS: INR 0.81; PROTHROMBIN TIME 11.7 seconds (11.9-14.5)
[2021-05-02] MEDS ORDERED: LIDOCAINE HCL 1% LOCAL INJ 20 ML VIAL ONE (03:50)
[2021-05-02] MEDS ORDERED: MIDAZOLAM HCL 2 MG/2 ML VIAL ONE (03:53)
[2021-05-02] MEDS ORDERED: FENTANYL CITRATE/PF 100MCG/2 ML INJ ONE (03:54)
[2021-05-02] MEDS ORDERED: NALOXONE HCL INJ 0.4 MG/ML AMP ONE (03:54)
[2021-05-02] MEDS ORDERED: SODIUM CHLORIDE 0.9% 250ML 250 ML ONE (04:00)
[2021-05-02] MEDS: SODIUM CHLORIDE 0.9% 1000ML 1,000 ML IV SCH ×3 (07:58→20:30)
[2021-05-02] MEDS ORDERED: TYLENOL325 MG PO (08:04)
[2021-05-02] MEDS ORDERED: DOCUSATE SODIUM 100 MG CAP PO PRN (10:15)
[2021-05-02 11:19] LABS: CHOL/HDL RATIO 2.8 (3.0-3.6)
[2021-05-02] MEDS: ACETAMINOPHEN 325 MG TAB PO PRN ×2 (15:45→21:44)
[2021-05-02] MEDS: FAMOTIDINE 20 MG TAB PO SCH (16:00)
[2021-05-02] MEDS ORDERED: ZOLPIDEM TARTRATE 5 MG TAB PO PRN (21:00)
[2021-05-03] VITALS (8 sets, daily range): BP systolic 112–146; BP diastolic 61–84
[2021-05-03] MEDS: ACETAMINOPHEN 325 MG TAB PO PRN ×2 (03:59→19:28)
[2021-05-03] MEDS: SODIUM CHLORIDE 0.9% 1000ML 1,000 ML IV SCH ×3 (04:30→20:20)
[2021-05-03 04:55] LABS: BASOPHILS # (AUTO) 0.1 (0.0-0.1); BASOPHILS % 0.6 % (0.0-1.0); EOSINOPHILS % 0.2 % (0.0-6.0); HEMATOCRIT 35.3 % (34.2-44.1); HEMOGLOBIN 11.4 g/dL (12.0-16.0); LYMPHOCYTES % 7.4 % (18.0-39.1); MEAN CORPUSCULAR HEMOGLOBIN 28.7 pg (28-32); MEAN CORPUSCULAR HGB CONC 32.3 g/dL (31-35); MEAN CORPUSCULAR VOLUME 88.9 fL (81-99); MONOCYTES # (AUTO) 0.9 (0.2-0.8); MONOCYTES % 6.7 % (4.4-11.3); NEUTROPHILS % 84.6 % (38.7-80.0); PLATELET COUNT 202 x10e3/uL (140-360); RED BLOOD COUNT 3.97 x10e6/uL (3.6-5.1); RED CELL DISTRIBUTION WIDTH 14.9 % (11.7-14.4)
[2021-05-03 05:13] LABS: ALBUMIN 2.9 g/dL (3.5-5.0); ALBUMIN/GLOBULIN RATIO 0.8 (0.8-2.0); ANION GAP 16.6 mmol/L (8-16); CALCIUM 8.2 mg/dL (8.4-10.2); CREATININE, SERUM 1.54 mg/dL (0.57-1.11); POTASSIUM 3.6 mmol/L (3.5-5.1)
[2021-05-03] MEDS: PIPERACILLIN/TAZOBACTAM 3.375 GM in SODIUM CHLORIDE 0.9% 50ML 50 ML IV SCH ×4 (06:12→23:56)
[2021-05-03] MEDS ORDERED: SODIUM CHLORIDE 0.9% 1000ML 1,000 ML IV ONE (08:00)
[2021-05-03] MEDS: FAMOTIDINE 20 MG TAB PO SCH ×2 (09:16→17:11)
[2021-05-03] MEDS: MORPHINE SULFATE INJ 4 MG/ML INJ 1ML IV PRN ×2 (09:26→21:03)
[2021-05-03] MEDS: ONDANSETRON HCL INJ 2MG/ML 2ML 2 MG/ML VIAL IV PRN ×2 (11:43→21:03)
[2021-05-03 14:41] LABS: ANION GAP 14.4 mmol/L (8-16); CALCIUM 7.4 mg/dL (8.4-10.2); CREATININE, SERUM 1.52 mg/dL (0.57-1.11); POTASSIUM 3.4 mmol/L (3.5-5.1)
[2021-05-04] VITALS (8 sets, daily range): BP systolic 115–145; BP diastolic 68–82
[2021-05-04] MEDS: SODIUM CHLORIDE 0.9% 1000ML 1,000 ML IV SCH (04:31)
[2021-05-04] MEDS: ACETAMINOPHEN 325 MG TAB PO PRN ×3 (05:20→21:31)
[2021-05-04] MEDS: PIPERACILLIN/TAZOBACTAM 3.375 GM in SODIUM CHLORIDE 0.9% 50ML 50 ML IV SCH ×3 (05:53→17:02)
[2021-05-04 07:11] LABS: BASOPHILS % 0.5 % (0.0-1.0); EOSINOPHILS # (AUTO) 0.1 (0.0-0.4); EOSINOPHILS % 0.7 % (0.0-6.0); HEMATOCRIT 28.7 % (34.2-44.1); HEMOGLOBIN 9.2 g/dL (12.0-16.0); LYMPHOCYTES # (AUTO) 0.9 (1.0-3.2); LYMPHOCYTES % 11.9 % (18.0-39.1); MEAN CORPUSCULAR HEMOGLOBIN 28.8 pg (28-32); MEAN CORPUSCULAR HGB CONC 32.1 g/dL (31-35); MONOCYTES # (AUTO) 0.6 (0.2-0.8); MONOCYTES % 7.7 % (4.4-11.3); NEUTROPHILS # (AUTO) 5.8 (2.1-6.9); NEUTROPHILS % 79.1 % (38.7-80.0); PLATELET COUNT 161 x10e3/uL (140-360); RED BLOOD COUNT 3.19 x10e6/uL (3.6-5.1); RED CELL DISTRIBUTION WIDTH 14.9 % (11.7-14.4)
[2021-05-04 07:28] LABS: ANION GAP 14.3 mmol/L (8-16); CALCIUM 7.8 mg/dL (8.4-10.2); CREATININE, SERUM 1.28 mg/dL (0.57-1.11); POTASSIUM 3.3 mmol/L (3.5-5.1)
[2021-05-04] MEDS: FAMOTIDINE 20 MG TAB PO SCH ×2 (08:29→17:02)
[2021-05-04] MEDS ORDERED: POTASSIUM CHLORIDE 20 MEQ TAB CR PO ONE (08:40)
[2021-05-04] MEDS: ONDANSETRON HCL INJ 2MG/ML 2ML 2 MG/ML VIAL IV PRN ×2 (11:27→19:18)
[2021-05-05] VITALS (8 sets, daily range): BP systolic 132–169; BP diastolic 78–104
[2021-05-05] MEDS: SODIUM CHLORIDE 0.9% 1000ML 1,000 ML IV SCH ×2 (05:11→06:38)
[2021-05-05] MEDS: PIPERACILLIN/TAZOBACTAM 3.375 GM in SODIUM CHLORIDE 0.9% 50ML 50 ML IV SCH ×4 (05:13→23:39)
[2021-05-05] MEDS: ACETAMINOPHEN 325 MG TAB PO PRN (05:46)
[2021-05-05 08:37] LABS: ANION GAP 17.3 mmol/L (8-16); BLOOD UREA NITROGEN 9 mg/dL (7-26); BUN/CREATININE RATIO 10 (6-25); CALCIUM 8.5 mg/dL (8.4-10.2); CARBON DIOXIDE 17 mmol/L (22-29); CHLORIDE 108 mmol/L (98-107); CREATININE, SERUM 0.86 mg/dL (0.57-1.11); EST GLOMERULAR FILTRATION RATE > 60 ML/MIN (60-); GLUCOSE 99 mg/dL (74-118); POTASSIUM 3.3 mmol/L (3.5-5.1); SODIUM 139 mmol/L (136-145)
[2021-05-05] MEDS: FAMOTIDINE 20 MG TAB PO SCH ×2 (08:43→16:36)
[2021-05-05] MEDS: LACTOBACILLUS ACIDOPHILUS CAPSULE PO SCH ×2 (09:17→16:37)
[2021-05-05] MEDS ORDERED: POTASSIUM CHLORIDE 20 MEQ TAB CR PO ONE (12:00)
[2021-05-05] MEDS: VANCOMYCIN HCL 125 MG CAPSULE PO SCH ×3 (12:24→23:39)
[2021-05-05] MEDS: MORPHINE SULFATE INJ 4 MG/ML INJ 1ML IV PRN (15:16)
[2021-05-06] VITALS (8 sets, daily range): BP systolic 154–165; BP diastolic 71–83
[2021-05-06] MEDS: PIPERACILLIN/TAZOBACTAM 3.375 GM in SODIUM CHLORIDE 0.9% 50ML 50 ML IV SCH ×4 (05:13→23:39)
[2021-05-06] MEDS: VANCOMYCIN HCL 125 MG CAPSULE PO SCH ×4 (05:13→23:39)
[2021-05-06] MEDS: LACTOBACILLUS ACIDOPHILUS CAPSULE PO SCH ×2 (08:38→17:10)
[2021-05-06] MEDS: FAMOTIDINE 20 MG TAB PO SCH ×2 (08:38→17:10)
[2021-05-06] MEDS: SODIUM CHLORIDE 0.9% 1000ML 1,000 ML IV SCH (12:01)
[2021-05-06] MEDS ORDERED: POTASSIUM CHLORIDE 20 MEQ TAB CR PO ONE (17:20)
[2021-05-07 00:56] VITALS: BP 157/77
[2021-05-07 04:02] VITALS: BP 138/82
[2021-05-07] MEDS: SODIUM CHLORIDE 0.9% 1000ML 1,000 ML IV SCH (04:21)
[2021-05-07] MEDS: ACETAMINOPHEN 325 MG TAB PO PRN (04:37)
[2021-05-07] MEDS: VANCOMYCIN HCL 125 MG CAPSULE PO SCH (05:13)
[2021-05-07] MEDS: PIPERACILLIN/TAZOBACTAM 3.375 GM in SODIUM CHLORIDE 0.9% 50ML 50 ML IV SCH ×2 (05:13→12:06)
[2021-05-07 07:46] VITALS: BP 169/84
[2021-05-07] MEDS: FAMOTIDINE 20 MG TAB PO SCH ×2 (07:54→16:53)
[2021-05-07] MEDS: LACTOBACILLUS ACIDOPHILUS CAPSULE PO SCH ×2 (08:03→16:53)
[2021-05-07 08:35] VITALS: BP 169/84
[2021-05-07] MEDS ORDERED: CHOLESTYRAMINE 4 GM PACKET PO PRN (09:15)
[2021-05-07 12:00] VITALS: BP 146/82
[2021-05-07] MEDS ORDERED: ZOFRAN4 MG PO (13:17)
[2021-05-07] MEDS ORDERED: CHOLESTYRAMINE L4 GM PO (13:17)
[2021-05-07] MEDS ORDERED: KEFLEX125 MG/5 M PO (13:17)
[2021-05-07] MEDS ORDERED: Lactobacillus Acidophilus PO (13:17)
[2021-05-07] MEDS ORDERED: FAMOTIDINE20 MG PO (13:17)
[2021-05-07] MEDS ORDERED: POTASSIUM CHLORIDE 10MEQ EA PO NR (15:30)
[2021-05-07 15:52] VITALS: BP 171/93
== END 2021-05-07 17:20 | disposition home or self-care (01) | DRG 699 ==
LOC: ER 23:32 → ERHOLD 05-02 05:24 → MED/SURG2 05-02 07:30 → OBSVTOIN 05-03 07:36
PROVIDERS: ADMIT Internal Medicine; ATTEND Internal Medicine
PROC: 0T25X0Z Change Drainage Device in Kidney, External Approach (ICD-10-PCS; principal; 2021-05-02)
DX: N99.528 Other complication of incontinent external stoma of urinary tract (principal); N13.6 Pyonephrosis; N99.521 Infection of incontinent external stoma of urinary tract; N20.0 Calculus of kidney; E66.9 Obesity, unspecified; Z68.37 Body mass index [BMI] 37.0-37.9, adult; Z88.1 Allergy status to other antibiotic agents; Z20.822 Contact with and (suspected) exposure to COVID-19; R19.7 Diarrhea, unspecified
CPT/HCPCS: 36415; 50435; 74176; 80048; 80053; 80061; 81001; 81025; 83036; 84132; 85025; 85610; 87040; 87086; 87493; 96361; 99284; C1729; C1769; G0378; J2001; J2250; J2270; J2310; J2405; J2543; J3010; J7030; J7050; Q9967; U0002

== ENCOUNTER 2021-06-03 15:30 | Emergency (ER) | payer SELFPAY ==
[~2021-06-03] VITALS: Ht 154.9 cm; Wt 88.9 kg
[~2021-06-03 15:30] MED LIST changes: +CHOLESTYRAMINE L4 GM PO; +FAMOTIDINE20 MG PO; +KEFLEX125 MG/5 M PO; +Lactobacillus Acidophilus PO; +TYLENOL325 MG PO; +ZOFRAN4 MG PO
== END 2021-06-03 17:24 | disposition home or self-care (01) ==
LOC: ER 17:00
DX: N99.528 Other complication of incontinent external stoma of urinary tract (principal); Z87.442 Personal history of urinary calculi
CPT/HCPCS: 99282